=== PATIENT | female | born 1950 | race Caucasian/White ===

== ENCOUNTER → 2018-02-19 | Outpatient (CLI) | payer MEDICARE | END | disposition home or self-care (01) | LOC: PCVCCLINIC 14:34 | DX: I10 Essential (primary) hypertension (principal); E78.5 Hyperlipidemia, unspecified; I47.1 Supraventricular tachycardia; G47.33 Obstructive sleep apnea (adult) (pediatric); R07.2 Precordial pain | CPT/HCPCS: 93005; G0463 ==

== ENCOUNTER → 2018-03-05 | Outpatient (CLI) | payer MEDICARE ==
[~2018-03-05] MED LIST: REGADENOSON 0.4 MG/5 ML DISP.SYRIN. IV
== END | disposition home or self-care (01) ==
LOC: PCVCIMAG 08:17
DX: I10 Essential (primary) hypertension (principal); I47.1 Supraventricular tachycardia; G47.33 Obstructive sleep apnea (adult) (pediatric)
CPT/HCPCS: 78452; 93017; 93306; A9500; J2785